=== PATIENT | female | born 1980 | race Caucasian/White ===

== ENCOUNTER 2024-06-21 01:22 | Emergency (ER) | payer SELFPAY ==
[~2024-06-21] VITALS: Ht 157.5 cm; Wt 46.7 kg
[2024-06-21] MEDS ORDERED: ONDANSETRON 4 MG HOME.PACK SL ONE (02:00)
[2024-06-21] MEDS ORDERED: hydrOXYzine pamoate 50 MG HOME.PACK PO ONE (02:00)
[2024-06-21 02:13] VITALS: BP 132/95
== END 2024-06-21 02:15 | disposition home or self-care (01) ==
LOC: ED 01:22
DX: B34.9 Viral infection, unspecified (principal); F41.9 Anxiety disorder, unspecified
CPT/HCPCS: 99283; A9270